=== PATIENT | female | born 1995 | race Two or more races ===

== ENCOUNTER 2022-11-08 14:51 | Outpatient (CLI) | payer OTHER | END 2022-11-08 17:09 | disposition home or self-care (01) | LOC: PRENATAL 14:51 | PROVIDERS: ATTEND Obstetrics & Gynecology Maternal & Fetal Medicine | DX: O26.849 Uterine size-date discrepancy, unspecified trimester (principal); O36.8199 Decreased fetal movements, unspecified trimester, other fetus; Z3A.32 32 weeks gestation of pregnancy ==

== ENCOUNTER 2022-12-22 00:12 | Inpatient (IN) | payer OTHER ==
[~2022-12-22] VITALS: Ht 149.9 cm; Wt 2.7 kg
[2022-12-22 01:07] LABS: PH,URINE 7.5 (5.0-8.0); URINE APPEARANCE Cloudy; URINE BILIRRUBIN Negative (NEGATIVE); URINE BLOOD Moderate; URINE COLOR Yellow; URINE GLUCOSE Negative (NEGATIVE); URINE LEUKOCYTE Negative; URINE NITRATE Negative; URINE PROTEIN 30 (NEGATIVE); URINE UROBILINOGEN 0.2 E.U./dl
[2022-12-22 01:09] LABS: HEMATOCRIT 35.3 % (36.0-45.00); HEMOGLOBIN 11.9 g/dL (12.0-15.00); MEAN CELL VOLUME 90.5 fL (80.00-100.00); MEAN CORPUSCULAR HEMOGLOBIN 30.6 pg (27.00-32.0); MEAN CORPUSCULAR HGB CONC 33.8 g/dl (32.0-36.0); PLATELET COUNT 286 K/uL (150-450); RED CELL DISTRIBUTION WIDTH 13.6 % (11.5-14.5)
[2022-12-22 01:11] LABS: URINE BACTERIA 365.3 uL (0.0-1933); URINE EPITHELIAL CELLS 34.6 uL (0.0-38.8); URINE RBC 165.2 uL (0.0-20.8); URINE WBC 17.1 uL (0.0-23.2)
[2022-12-22 01:31] LABS: INR < 0.93; PROTHROMBIN TIME 9.4 SECONDS (9.0-11.5)
[2022-12-22 01:37] LABS: ALBUMIN 2.7 gm/dL (3.4-5.0); BILIRUBIN TOTAL 0.2 mg/dL (0.3-1.2); CREATININE SERUM 0.6 mg/dL (0.55-1.02); GFR 121.8; GLOBULINA 3.5 G/DL (2.4-3.5); POTASSIUM 4.43 mEq/L (3.5-5.1); TOTAL PROTEIN 6.2 gm/dL (6.4-8.2)
[2022-12-22 01:49] LABS: URINE YEAST FEW /hpf
[2022-12-22] MEDS ORDERED: PRENA1 TRUE CO1 EACH (04:23)
[2022-12-22] MEDS ORDERED: IRON18 MG PO (04:23)
[2022-12-22 22:49] LABS: HEMATOCRIT 30.9 % (36.0-45.00); MEAN CELL VOLUME 92.6 fL (80.00-100.00); MEAN CORPUSCULAR HEMOGLOBIN 29.9 pg (27.00-32.0); MEAN CORPUSCULAR HGB CONC 32.3 g/dl (32.0-36.0); PLATELET COUNT 279 K/uL (150-450); RED BLOOD COUNT 3.34 M/uL (4.00-6.00); RED CELL DISTRIBUTION WIDTH 13.4 % (11.5-14.5)
[2022-12-22 22:50] LABS: ABG PH 7.247 (7.35-7.45); ABG pCO2 46.6 mmHg (35-45)
[2022-12-22 22:51] LABS: ABG PO2 29.1 mmHg (80-100); BASE EXCESS -7.5 mmol/l; BICARBONATE 19.8 mmol/l (23-25); SaO2 41.9 %; Tco2 21.2 mmol/l; allen test SATISFACTORY; o2 21 %; puncture site RADIAL RIGHT
[2022-12-25] MEDS ORDERED: NAPR500T14 PO (08:50)
[2022-12-25] MEDS ORDERED: Tylenol #3 PO (08:50)
== END 2022-12-25 12:17 | disposition home or self-care (01) | DRG 788 ==
LOC: OB/GYN 00:12 → LDR 00:12 → OB/GYN 15:03
PROVIDERS: ADMIT Obstetrics & Gynecology; ATTEND Obstetrics & Gynecology
PROC: 4A1HXCZ Monitoring of Products of Conception, Cardiac Rate, External Approach (ICD-10-PCS; 2022-12-22)
PROC: 10D00Z1 Extraction of Products of Conception, Low, Open Approach (ICD-10-PCS; principal; 2022-12-22 14:00)
DX: O62.1 Secondary uterine inertia (principal); Z3A.38 38 weeks gestation of pregnancy; Z37.0 Single live birth; Z20.822 Contact with and (suspected) exposure to COVID-19